=== PATIENT | female | born 1990 | race Caucasian/White ===

== ENCOUNTER 2017-03-15 12:38 | Emergency (ER) | payer MEDICAID ==
[~2017-03-15] VITALS: Ht 152.4 cm; Wt 78.0 kg
[2017-03-15] MEDS ORDERED: PREDNISONE 20MG TABLET PO STA (14:37)
[2017-03-15] MEDS ORDERED: IPRATROPIUM/ALBUTEROL 0.5-3(2.5)MG/3ML NEB HHN ONE (14:45)
[2017-03-15 15:00] VITALS: BP 120/78
[2017-03-15 15:07] LABS: CHLORIDE 103 mEq/L (98-107)
[2017-03-15 15:13] LABS: BASOPHILS % 0.6 % (0.0-2.0); EOSINOPHILS % 3.9 % (0.0-5.0); HEMOGLOBIN. 13.1 g/dL (12.0-16.0); LYMPHOCYTES % 30.9 % (20.0-50.0); MEAN CORPUSCULAR HEMOGLOBIN 30.6 pg (28.0-32.0); MEAN CORPUSCULAR VOLUME 88.5 fL (81.0-99.0); MEAN PLATELET VOLUME 7.7 fl (7.4-10.4); MONOCYTES % 6.4 % (2.0-8.0); NEUTROPHILS % 58.2 % (40.0-76.0); PLATELET 259 x1000/uL (130-400); RED BLOOD CELL COUNT 4.29 mill/uL (4.2-5.4); RED CELL DISTRIBUTION WIDTH 13.5 % (11.6-14.6)
[2017-03-15 15:15] LABS: CARBON DIOXIDE 26 mEq/L (21-32)
== END 2017-03-15 16:45 | disposition home or self-care (01) ==
LOC: ER 15:36
DX: J45.909 Unspecified asthma, uncomplicated (principal); R07.9 Chest pain, unspecified; R06.00 Dyspnea, unspecified
CPT/HCPCS: 36415; 71010; 80053; 81025; 85025; 93005; 94640; 99285; J7512; J7620